=== PATIENT | female | born 1970 | race Caucasian/White ===

== ENCOUNTER 2023-11-03 08:48 | Observation (INO) | payer BC, MEDICAID ==
[~2023-11-03] VITALS: Ht 157.5 cm; Wt 70.0 kg
[~2023-11-03 08:48] MED LIST: MECL-302 PO
[2023-11-03 09:39] LABS: BASOPHILS % (AUTO) 0.4 % (0-1); EOSINOPHILS # (AUTO) 0.3 X10'3 (0-0.9); HEMATOCRIT 47.7 % (35.0-45.0); HEMOGLOBIN 15.9 g/dl (12.0-16.0); LYMPHOCYTES # (AUTO) 1.4 X10'3 (1.1-4.8); LYMPHOCYTES % (AUTO) 15.2 % (21-51); MEAN CORPUSCULAR HEMOGLOBIN 31.5 PG (27.0-31.0); MEAN CORPUSCULAR HGB CONC 33.3 g/dL (33.0-36.5); MEAN CORPUSCULAR VOLUME 94.6 FL (78-98); MEAN PLATELET VOLUME 9.4 FL (7.4-10.4); MONOCYTES # (AUTO) 0.8 X10'3 (0-0.9); MONOCYTES % (AUTO) 8.3 % (2-12); NEUTROPHILS # (AUTO) 6.9 X10'3 (1.8-7.7); NEUTROPHILS % (AUTO) 73.1 % (42-75); PLATELET COUNT 253 X10'3 (140-440); RED BLOOD COUNT 5.05 X10'6 (4.20-5.60); RED CELL DISTRIBUTION WIDTH 13.9 % (11.5-14.5); WHITE BLOOD COUNT 9.5 X10'3 (4.5-11.0)
[2023-11-03 09:47] LABS: ALBUMIN 3.6 G/DL (3.4-5.0); ANION GAP 4 (8-16); BLOOD UREA NITROGEN 12 MG/DL (7-18); BUN/CREATININE RATIO 17.1 (10.0-20.0); CALCIUM 8.8 MG/DL (8.5-10.1); CHLORIDE 106 MMOL/L (99-107); GLUCOSE 87 MG/DL (70-104); LIPASE 40 U/L (16-77); POTASSIUM 3.7 MMOL/L (3.5-5.1); SODIUM 139 MMOL/L (135-145); TOTAL CARBON DIOXIDE 28.7 MMOL/L (24-32); eCRCL 72 ML/MIN; eGFR 87 ML/MIN
[2023-11-03] MEDS ORDERED: nitroGLYCERIN 0.4mg SUBLingual tab SL PRN ×2 (09:55→11:55)
[2023-11-03] MEDS: aspirin 81mg tab.chew PO ONE (10:15)
[2023-11-03] MEDS: nitroGLYCERIN 1gm ointment UD TP ONE (10:15)
[2023-11-03] MEDS: pantoprazole 40 MG vial IV SCH (10:31)
[2023-11-03 11:39] LABS: BILIRUBIN,URINE NEGATIVE (Neg); CLARITY,URINE CLEAR (Clear); COLOR,URINE YELLOW (Yellow); GLUCOSE, URINE NEGATIVE (Neg); KETONES,URINE TRACE mg/dl (Neg); LEUKOCYTE ESTERASE ,URINE NEGATIVE (Neg); NITRITES, URINE NEGATIVE (Neg); OCCULT BLOOD,URINE NEGATIVE (Neg); PROTEIN,URINE NEGATIVE (Neg); UROBILINOGEN,URINE 0.2 E.U/dL (0.2-1.0)
[2023-11-03 11:44] LABS: UA COLLECTION TYPE CLN CATCH MIDSTREAM
[2023-11-03] MEDS ORDERED: potassium Cl 40MEQ/1/2NS 520ml 520 ML IV PRN (11:55)
[2023-11-03] MEDS ORDERED: metoprolol tartrate 1mg/ml inj IV PRN (11:55)
[2023-11-03] MEDS ORDERED: ondansetron/PF 4mg/2ml inj IV PRN (11:55)
[2023-11-03] MEDS ORDERED: potassium Cl 20 mEq SR tablet PO PRN (11:55)
[2023-11-03] MEDS ORDERED: magnesium 4gm in 100ml NS 100 ML IV PRN (11:55)
[2023-11-03] MEDS ORDERED: magnesium 2GM in 50ml NS 50 ML IV PRN (11:55)
[2023-11-03] MEDS: PERFLUTREN PROTEIN-A MICROSPHR (Optison) 0.22 MG/ML 3ML VIAL IV ONE (12:27)
[2023-11-03] MEDS: normal saline 1000ml 1,000 ML IV SCH (12:32)
[2023-11-03] MEDS: acetaminophen 325mg tablet PO PRN (16:04)
[2023-11-03] MEDS ORDERED: SIMV-42 PO (18:50)
[2023-11-03] MEDS ORDERED: DICL75TA28 PO (18:50)
[2023-11-03] MEDS ORDERED: AMLO5TAB16 PO (18:50)
[2023-11-03] MEDS ORDERED: CYCL5TAB PO (18:50)
[2023-11-03] MEDS: K and/or MAG REPLACEMENT MC SCH (20:00)
[2023-11-03 21:10] VITALS: BP 147/73; PULSE 57; RESP 16; TEMP 97.7; O2SAT 96
[2023-11-03 22:00] VITALS: BP 128/67; PULSE 67; RESP 14; TEMP 97.5; O2SAT 97
[2023-11-04] VITALS (14 sets, daily range): BP systolic 121–152; BP diastolic 58–75; PULSE 58–105; RESP 13–18; TEMP 97.7–98; O2SAT 95–100
[2023-11-04] MEDS: morphine 2 MG/ML inj. syringe IV PRN (05:57)
[2023-11-04 07:52] LABS: BASOPHILS % (AUTO) 0.4 % (0-1); EOSINOPHILS # (AUTO) 0.2 X10'3 (0-0.9); HEMATOCRIT 45.5 % (35.0-45.0); HEMOGLOBIN 15.2 g/dl (12.0-16.0); LYMPHOCYTES # (AUTO) 1.1 X10'3 (1.1-4.8); MEAN CORPUSCULAR HEMOGLOBIN 31.7 PG (27.0-31.0); MEAN CORPUSCULAR HGB CONC 33.5 g/dL (33.0-36.5); MEAN CORPUSCULAR VOLUME 94.7 FL (78-98); MEAN PLATELET VOLUME 9.6 FL (7.4-10.4); MONOCYTES # (AUTO) 0.5 X10'3 (0-0.9); MONOCYTES % (AUTO) 6.6 % (2-12); NEUTROPHILS # (AUTO) 5.3 X10'3 (1.8-7.7); PLATELET COUNT 230 X10'3 (140-440); RED CELL DISTRIBUTION WIDTH 13.9 % (11.5-14.5); WHITE BLOOD COUNT 7.1 X10'3 (4.5-11.0)
[2023-11-04] MEDS ORDERED: pantoprazole 40 MG vial IV SCH (08:00)
[2023-11-04 08:22] LABS: ALBUMIN 3.4 G/DL (3.4-5.0); ANION GAP 7 (8-16); BLOOD UREA NITROGEN 9 MG/DL (7-18); CALCIUM 8.2 MG/DL (8.5-10.1); CHLORIDE 106 MMOL/L (99-107); GLUCOSE 82 MG/DL (70-104); POTASSIUM 3.4 MMOL/L (3.5-5.1); SODIUM 140 MMOL/L (135-145); TOTAL CARBON DIOXIDE 27.1 MMOL/L (24-32); eCRCL 84 ML/MIN; eGFR > 90 ML/MIN
[2023-11-04] MEDS: potassium Cl 20 mEq SR tablet PO PRN (08:36)
[2023-11-04] MEDS: pantoprazole 40mg Tablet.DR PO SCH (08:36)
[2023-11-04] MEDS: regadenoson 0.4mg/5ml syringe IV PRN (11:54)
[2023-11-04] MEDS: aminophylline 250mg/10ml inj. IV PRN (12:27)
[2023-11-04 15:05] LABS: LIPASE 30 U/L (16-77)
[2023-11-04] MEDS ORDERED: PANT40SU2 PO (19:07)
== END 2023-11-04 20:18 | disposition home or self-care (01) ==
LOC: ER 08:48 → ED HOLD 11:58 → EDBEDREQ 20:18 → ORTHO 4S 21:10
PROVIDERS: ADMIT Internal Medicine; ATTEND Internal Medicine
DX: I21.A1 Myocardial infarction type 2 (principal); I20.0 Unstable angina; I10 Essential (primary) hypertension; E78.5 Hyperlipidemia, unspecified; K21.9 Gastro-esophageal reflux disease without esophagitis; E78.00 Pure hypercholesterolemia, unspecified; I48.91 Unspecified atrial fibrillation; Z79.899 Other long term (current) drug therapy
CPT/HCPCS: 36415; 71045; 76700; 78452; 80048; 81003; 83690; 83735; 84484; 85025; 87081; 93005; 93017; 93306; 96374; 96375; 99285; A9500; C9113; G0378; J0280; J2270; J2785; J7030

== ENCOUNTER 2024-10-29 12:17 | Inpatient (IN) | payer BC ==
[~2024-10-29] VITALS: Ht 157.5 cm; Wt 63.1 kg
[~2024-10-29 12:17] MED LIST changes: +AMLO5TAB16 PO; +CYCL-920 PO; +DICL75TA28 PO; -MECL-302 PO; +PANT40SU2 PO; +SIMV-42 PO
--- NOTE | 2024-10-29 12:47 | ELECTROCARDIOGRAPH REPORT ---
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
[2024-10-29 12:59] LABS: BASOPHILS # (AUTO) 0.1 X10'3 (0-0.2); BASOPHILS % (AUTO) 0.8 % (0-1); EOSINOPHILS % (AUTO) 0.2 % (0-6); HEMATOCRIT 48.4 % (35.0-45.0); HEMOGLOBIN 16.3 g/dl (12.0-16.0); LYMPHOCYTES % (AUTO) 12.1 % (21-51); MEAN CORPUSCULAR HEMOGLOBIN 30.8 PG (27.0-31.0); MEAN CORPUSCULAR HGB CONC 33.6 g/dL (33.0-36.5); MEAN CORPUSCULAR VOLUME 91.6 FL (78-98); MEAN PLATELET VOLUME 9.3 FL (7.4-10.4); MONOCYTES # (AUTO) 0.4 X10'3 (0-0.9); NEUTROPHILS # (AUTO) 6.9 X10'3 (1.8-7.7); NEUTROPHILS % (AUTO) 81.9 % (42-75); PLATELET COUNT 263 X10'3 (140-440); RED BLOOD COUNT 5.29 X10'6 (4.20-5.60); RED CELL DISTRIBUTION WIDTH 13.7 % (11.5-14.5); WHITE BLOOD COUNT 8.4 X10'3 (4.5-11.0)
[2024-10-29 13:15] LABS: ALANINE AMINOTRANSFERASE 51 U/L (12-78); ALBUMIN 4.3 G/DL (3.4-5.0); ALBUMIN/GLOBULIN RATIO 1.3 (1.1-1.5); ALKALINE PHOSPHATASE 123 IU/L (46-116); ANION GAP 12 (8-16); ASPARTATE AMINO TRANSFERASE 32 U/L (10-37); BILIRUBIN,TOTAL 0.7 MG/DL (0.1-1.0); BLOOD UREA NITROGEN 10 MG/DL (7-18); BUN/CREATININE RATIO 12.8 (10.0-20.0); CALCIUM 9.2 MG/DL (8.5-10.1); CHLORIDE 105 MMOL/L (99-107); CREATININE 0.78 MG/DL (0.40-0.90); GLUCOSE 96 MG/DL (70-104); POTASSIUM 3.5 MMOL/L (3.5-5.1); SODIUM 145 MMOL/L (135-145); TOTAL CARBON DIOXIDE 28.4 MMOL/L (24-32); TOTAL PROTEIN 7.7 G/DL (6.4-8.2); eCRCL 64 ML/MIN; eGFR 76 ML/MIN
[2024-10-29 13:22] LABS: PRO BRAIN NATRIURETIC PEPTIDE 165 PG/ML (0-125)
--- NOTE | 2024-10-29 13:30 | RADIOLOGY REPORT ---
CLINICAL INFORMATION: Chest pain. TECHNIQUE: Single AP portable chest radiograph was obtained. COMPARISON: DI CHEST,SINGLE VIEW on DOS: 11/03/23 FINDINGS: Lungs: Clear. Cardiac: Heart size is within normal limits. Pulmonary vasculature: Unremarkable. Mediastinum/nilam: Unremarkable. Bones: No acute osseous abnormality identified. Other: No other significant findings. IMPRESSION: No evidence of acute disease in the chest.
[2024-10-29] MEDS: ondansetron 4mg rapidly disintigrating tab PO ONE (13:59)
[2024-10-29] MEDS: ondansetron/PF 4mg/2ml inj IV ONE (15:32)
[2024-10-29] MEDS ORDERED: iohexol 350MG/ML 100ml bottle IV ONE (15:38)
--- NOTE | 2024-10-29 16:23 | RADIOLOGY REPORT ---
INDICATION: Chest Pain COMPARISON: None TECHNIQUE: Multidetector CTA of the chest was performed of the chest with 100 cc of intravenous contr ast. PULMONARY ANGIOGRAPHY PROTOCOL was utilized using a bolus-tracking technique centered on the [place] n pulmonary artery. Axial, coronal and sagittal multiplanar and MIP reformats were performed. Sagittal and coronal MIP images are reconstructed and submitted for interpretation. Radiation Dose Information: CT Dose: CTDI volume is 33.27 mGy. Dose-length product is 373.55 mGy*cm Omni 350 : 90 mL The dose indicators for CT are the volume Computed Tomography (CT) Dose Index (CTDIvol) and the Dose Length Product (DLP), and are measured in units of mGy and mGy-cm, respectively. These indicators are not patient dose, but values generated from the CT scanner acquisition factors. The report includes radiation exposure data for exposures received during this examination. Findings: Pulmonary artery: Normal caliber of the pulmonary artery. No large central or large segmental pulmo nary embolism. Lower neck: Normal thyroid. Lungs: No focal consolidation, pulmonary mass, or suspicious pulmonary nodule. Heart/Vascular Structures: Normal heart size. Normal caliber and enhancement of the aorta. Lymph Nodes: No adenopathy Pleura: No pleural effusion or significant pneumothorax. Musculoskeletal: No acute osseous abnormality. Upper abdomen: Limited portions of the upper abdomen are unremarkable. IMPRESSION: 1. No pulmonary embolism. 2. No no findings of pulmonary artery hypertension. HS:Y
--- NOTE | 2024-10-29 16:28 | Physician Documentation ---
History of Present Illness ~ Chief Complaint: Chest Pain Stated Complaint: DIZZY Time Seen by MD: 15:00 Source: patient, EMS, EMS notes reviewed Mode of Arrival: EMS Exam Limitations: no limitations HPI Chief Complaint: Chest pain Caveat: None Independent Historians: History of Present Illness: Patient is a 54-year-old woman brought in by paramedics for substernal chest pain that came on suddenly at 930-10 a.m.. Patient was at rest laying down when this began. Patient had a similar episode five days ago (Thursday). Today the pain was much more severe. She took an aspir in 325 mg with no relief. She had associated nausea and vomiting. Mild shortness of breath. No diaphoresis. Patient denies any abdominal pain. The pain was severe and radiated to the back. And with pain radiating around the lower chest and pain radiating straight to the back described as sharp. Chest pain has since resolved. Patient had a similar episode a year ago last August where she was admitted and told that she had NSTEMI and had a negative stress test and was discharged. Patient has not had a heart catheterization. Patient is followed by Dr. Bunny Ortiz. Review of systems: All systems were reviewed and are negative except for what is indicated in the history of present illness. Past Medical History: Hypertension, hyperlipidemia Past Surgical History: None Social History: , no tobacco use, no alcohol use, no drug use Medications: Reviewed as documented Nursing Notes Allergies: Reviewed as documented in Nursing Notes Medication Reconciliation Allergies: Coded Allergies: acyclovir (Verified Allergy, Intermediate, 11/03/23) Scheduled Amlodipine Besylate (Amlodipine Besylate), 1 TAB PO DAILY, (Reported) Pantoprazole Sodium (Protonix), 1 PKT PO DAILY Simvastatin* (Zocor*), 1 TAB PO HS, (Reported) Scheduled PRN Cyclobenzaprine HCl (Cyclobenzaprine HCl), 1 TAB PO HS PRN for muscle spasms, (Reported) Diclofenac Sodium (Diclofenac Sodium), 1 TAB PO BID PRN for pain, (Reported) Past Medical History Past Medical History: Arrhythmia, High Cholesterol, Hypertension, GERD Past Surgical History: noncontributory Patient History: FH: heart failure Alcohol Use: None Drug Use: none Lives In: Home Physical Exam Vital Signs: Temperature: 97.7, Source: Oral, Heart Rate: 66, Respiratory Rate: 16, BP: 134/70, Pulse Oximetry: 93, Weight: 63.100 Oxygen Flow Rate: 0 Progress Results/Orders Results/Orders Orders - MIKO GALLARDO MD Chest,Single View (10/29/24 12:45) Monitor (10/29/24 12:45) Saline Lock (10/29/24 12:45) Oxygen (10/29/24 12:45) Cta Chest Pe (10/29/24 15:05) Page Hospitalist (10/29/24 16:37) Fill Out Med Reconciliation (10/29/24 16:37) Completed Orders - MIKO GALLARDO MD Chest,Single View (10/29/24 12:45) Cbc/Diff (10/29/24 12:45) PBNP (10/29/24 12:45) Electrocardiogram (10/29/24 12:45) CMP (10/29/24 12:45) Hs Troponin I W Calculations (10/29/24 12:45) Hs Troponin I W Calculations (10/29/24 14:45) Hs Troponin I W Calculations (10/29/24 15:45) Ondansetron Disint. Tablet (Zofran Odt T (10/29/24 13:55) Cta Chest Pe (10/29/24 15:05) Ondansetron Inj. (Zofran 4mg/2ml Vial) (10/29/24 15:10) Iohexol 350mg/Ml 100ml (Omnipaque 350mg/ (10/29/24 15:38) Nitroglycerin Top Ointment (Nitro-Bid Ud (10/29/24 16:45) Medications Received in ER Medications (Trade) Dose Ordered Sig/Elvia Route PRN Reason Start Time Stop Time Status Last Admin Dose Admin (Zofran ODT tablet) 4 mg ONCE ONCE PO 10/29/24 13:55 10/29/24 13:56 DC 10/29/24 13:59 4 MG (Zofran 4mg/2ml vial) 4 mg ONCE ONCE IV 10/29/24 15:10 10/29/24 15:13 DC 10/29/24 15:32 4 MG Vital Signs 10/29/24 10/29/24 10/29/24 12:36 14:53 14:53 Temp 97.7 Pulse 80 66 Resp 18 16 B/P (MAP) 141/84 134/70 (91) Pulse Ox 98 93 O2 Flow Rate 0 Laboratory Tests Test 10/29/24 12:52 10/29/24 14:57 10/29/24 16:06 White Blood Count 8.4 Red Blood Count 5.29 Hemoglobin 16.3 H Hematocrit 48.4 H Mean Corpuscular Volume 91.6 Mean Corpuscular Hemoglobin 30.8 Mean Corpuscular Hemoglobin Concent 33.6 Red Cell Distribution Width 13.7 Platelet Count 263 Mean Platelet Volume 9.3 Neutrophils (%) (Auto) 81.9 H Lymphocytes (%) (Auto) 12.1 L Monocytes (%) (Auto) 5.0 Eosinophils (%) (Auto) 0.2 Basophils (%) (Auto) 0.8 Neutrophils # (Auto) 6.9 Lymphocytes # (Auto) 1.0 L Monocytes # (Auto) 0.4 Eosinophils # (Auto) 0.0 Basophils # (Auto) 0.1 CBC Comment Sodium Level 145 Potassium Level 3.5 Chloride Level 105 Carbon Dioxide Level 28.4 Anion Gap 12 Blood Urea Nitrogen 10 Creatinine 0.78 Estimated GFR/1.73 m2 76 BUN/Creatinine Ratio 12.8 Glucose Level 96 Calcium Level 9.2 Total Bilirubin 0.7 Aspartate Amino Transf (AST/SGOT) 32 Alanine Aminotransferase (ALT/SGPT) 51 Alkaline Phosphatase 123 H Troponin I High Sensitivity 103 *H 97 *H 95 *H Pro-B-Type Natriuretic Peptide 165 H Total Protein 7.7 Albumin 4.3 Globulin 3.4 Albumin/Globulin Ratio 1.3 Chemistry Comments Troponin I High Sens Percent Delta 5 2 Troponin I Hi Sens Absolute Change -6 -2 Medical Decision Making Additional info obtained from: old records Findings Differential diagnosis includes but is not limited to: Acute coronary syndrome, pulmonary embolus, aortic dissection, NSTEMI type 1, NSTEMI type 2 EKG independent interpretation: Performed at 12:39 p.m.. Normal sinus rhythm, heart rate 72, Q-waves in V1 through V3, normal ST segments Chest x-ray, single view, indication: Chest pain Independent interpretation: Lungs are clear, mediastinum normal, normal cardiac silhouette. Normal bones and soft tissues. No acute cardiopulmonary process. Laboratory data independent interpretation: CBC: Unremarkable CMP: Unremarkable 1rst troponin: 103 2nd troponin: 97 3rd troponin: 95 Urinalysis: Emergency department course/medical decision-making: Patient presents with chest pain concerning for acute coronary syndrome. However the patient is also having severe pain radiating to the back that is persisting. CTA of the chest will be performed to rule out aortic dissection. Patient has already taken aspirin prior to arrival. Patient will be given 1 in of nitro paste. CTA of the chest is pending. Patient's troponins are mildly elevated. They seemed to be stable. Given the patient's history would recommend heart catheterization for further evaluation. Patient may have had an NSTEMI and I suspect small-vessel disease. Patient does not have any ischemic changes on EKG. Consultation/communications: 4:40 p.m.: Case discussed with the hospitalist, Dr. Alejandre. We will consult Cardiology. 4:50 p.m.: Case discussed with Dr. Luque, cardiology. He will see the patient in the morning. Departure Time of Disposition: 16:28 Impression: Primary Impression: Chest pain Qualified Codes: R07.9 - Chest pain, unspecified Additional Impression: Elevated troponin Condition: Improved Referrals: NO PRIMARY CARE PROVIDER (PCP) Education Educated: Patient Educated regarding: diagnosis, treatment Signature Scribe Signature: No scribe Attestation: No scribe MIKO GALLARDO MD October 29, 2024 16:28
[2024-10-29] MEDS ORDERED: potassium Cl 40MEQ/1/2NS 520ml 520 ML IV PRN (16:50)
[2024-10-29] MEDS ORDERED: potassium Cl 20 mEq SR tablet PO PRN ×2 (16:50)
[2024-10-29] MEDS ORDERED: mag hydrox/Alum hydrox/simeth 30ml oral suspension PO PRN (16:50)
[2024-10-29] MEDS ORDERED: magnesium sulf-water 4G/100mL 100 ML IV PRN (16:50)
[2024-10-29] MEDS: PERFLUTREN PROTEIN-A MICROSPHR (Optison) 0.22 MG/ML 3ML VIAL IV ONE (16:50)
[2024-10-29] MEDS ORDERED: magnesium hydroxide 30ml (MOM) UD suspension PO PRN (16:50)
[2024-10-29] MEDS ORDERED: magnesium sulf-water 2g/50mL 50 ML IV PRN (16:50)
[2024-10-29] MEDS ORDERED: nitroGLYCERIN 0.4mg SUBLingual tab SL PRN ×2 (16:50→17:25)
[2024-10-29] MEDS ORDERED: metoprolol tartrate 1mg/ml inj IV PRN (17:25)
[2024-10-29] MEDS ORDERED: aminophylline 250mg/10ml inj. IV PRN (17:25)
--- NOTE | 2024-10-29 17:32 | HISTORY AND PHYSICAL ---
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 The patient took a 325 mg aspirin and has developed couple episodes of nausea and vomiting. The patient is currently chest pressure free the patient has had five episodes of chest pressure in the last year however ever this is the most significant episode. The patient was here in October of 2023 and had an echocardiogram that was essentially unremarkable and a negative Lexiscan stress test her EKG was negative for any ST segment elevation or depressions or any significant findings and the patient's high sensitivity troponin is downtrending initially 103 and an 97 currently- Dr. Limon ED physician spoke with on-call string winding machine operator Dr. Luque who will evaluate the patient in the morning and may take the patient for cardiac catheterization however requested a stress test be ordered. Allergies: Coded Allergies: acyclovir (Verified Allergy, Intermediate, 11/03/23) Home Medications Home Medications Active Protonix (Pantoprazole Sodium) 40 Mg Suspdr.pkt 1 Pkt PO DAILY 30 Days Reported Zocor* (Simvastatin) 20 Mg Tablet 1 Tab PO HS Amlodipine Besylate 5 Mg Tablet 1 Tab PO DAILY Cyclobenzaprine HCl 5 Mg Tablet 1 Tab PO HS PRN Diclofenac Sodium 75 Mg Tablet.dr 1 Tab PO BID PRN Past Medical History Past Medical History Hypertension Hyperlipidemia Irregular heart rate Past Surgical History Surgical History Comment Tubal ligation Family History Family History: FH: COPD (chronic obstructive pulmonary disease) FATHER FH: heart failure MOTHER, , Cause: Heart failure, Not a twin, Race: WHITE Past Social History Social History Comment Does not smoke cigarettes, rare alcohol intake, denies any illicit drug use, full code status ROS ROS Except for positives in the HPI the rest of the 14 point review systems is negative Exam Vitals: Vital Signs Date Time Temp Pulse Resp B/P (MAP) Pulse Ox O2 Delivery O2 Flow Rate FiO2 10/29/24 14:53 10/29/24 14:53 66 16 93 0 10/29/24 12:36 97.7 General: Gen. No acute distress alert and oriented 4 Lungs clear to ascultation bilaterally, no wheezes rales or rhonchi appreciated Heart normal sinus rhythm no murmurs rubs or clicks noted Abdomen soft moderate significant epigastric tenderness as well as right periumbilical tenderness Lower extremities no clubbing cyanosis, nor edema appreciated bilaterally Diagnostic Data Last Recorded Lab Results: 10/29/24 1252 10/29/24 1252 Advance Care Planning Advanced Care plannin - 30 Minutes Problems: (1) Chest pain Status: Acute Additional Plan # chest pain evaluate for NM- took 325 mg aspirin at home Metoprolol tartrate 25 mg b.i.d. Atorvastatin 20 mg now and fasting lipid panel is ordered Lexiscan stress test Echocardiogram Dr. Luque string winding machine operator's has been consulted and will evaluate the patient in the morning CTA of the chest is negative for PE # epigastric and right lower quadrant abdominal tenderness A CT scan of the abdomen and pelvis is ordered for further evaluation # hypertension Blood pressure is under acceptable control continue monitor # hyperlipidemia Fasting lipid panel is ordered # DVT prophylaxis SQ Lovenox I spent a total of 17 minutes on reviewing various resuscitative measures/ ACP with the patient at the time of admission. The patient has decided on a full code status Date of Service: October 29, 2024 Billing Provider: CONNIE PHILLIP DO Common Visit Codes: 13608-REMPBEJ INP/OBS CARE (HIGH) Secondary Visit Codes: 25440-CBGQSAYX CARE PLAN 30 MINUTES Problem Qualifiers (1) Chest pain: Chest pain type: unspecified Qualified Codes: R07.9 - Chest pain, unspecified CONNIE PHILLIP DO October 29, 2024 17:32
[2024-10-29] MEDS: pantoprazole 40mg Tablet.DR PO ONE (18:34)
[2024-10-29] MEDS: atorvastatin 20mg tablet PO ONE (18:34)
[2024-10-29] MEDS: metoprolol tartrate 50mg tablet PO SCH (18:34)
[2024-10-29] MEDS: mag hydrox/Alum hydrox/simeth 30ml oral suspension PO ONE (18:36)
[2024-10-29] MEDS: nitroGLYCERIN 1gm ointment UD TP ONE (18:36)
[2024-10-29] MEDS: normal saline 1000ml 1,000 ML IV SCH (18:45)
[2024-10-29] MEDS: ondansetron/PF 4mg/2ml inj IV PRN (19:41)
--- NOTE | 2024-10-29 20:00 | RADIOLOGY REPORT ---
Exam: CT CT ABDOMEN PELVIS History: Epigastric and right lower quadrant abdominal pain Comparison Study: None Technique: Multidetector spiral CT of the abdomen was performed from lung bases to pubic symphysis. Imaging was performed without IV contrast. Axial, coronal and sagittal multiplanar reformats were ob tained from the axial data set by the technologist. Radiation Dose : 1. Abdomen/Pelvis: CTDIvol mGy, DLP mGy*cm. Findings: Evaluation of solid organs is limited due to lack of intravenous contrast use. Lung bases: No abnormality demonstrated. Liver: Liver is normal in size. No focal lesions noted. Gallbladder and Biliary Tree: No abnormality demonstrated. Spleen: No abnormality demonstrated. Pancreas: No abnormality demonstrated. Adrenal Glands: No abnormality demonstrated. Kidneys: There is contrast in the renal collecting system related to recent contrast administration. No abnormality demonstrated. No hydroureteronephrosis. Bladder: Non distended. Bowel: Small hiatal hernia present. Stomach appears grossly unremarkable. No abnormally dilated or th ick-walled loops of large or small bowel noted. Appendix appears unremarkable. Ascites: Absent Lymphadenopathy: No evidence of lymphadenopathy. Abdominal Wall and Mesentery: Unremarkable. Vasculature: Unremarkable given lack of intravenous contrast. Pelvic Organs: Unremarkable Musculoskeletal: No bony lesions or fracture. IMPRESSION: No acute abdominal or pelvic findings. Radiation optimization: All CT scans at this facility use at least one of these dose optimization alisa hniques: automated exposure control mA and/or kV adjustment per patient size (includes targeted exam s where dose is matched to clinical indication) or iterative reconstruction.
[2024-10-29] MEDS: docusate sod 100mg capsule PO SCH (20:13)
[2024-10-29] MEDS: enoxaparin 40mg/0.4ml syringe SQ SCH (20:14)
[2024-10-29 20:40] VITALS: BP 100/62; PULSE 71; RESP 20; TEMP 98.1; O2SAT 97
[2024-10-29] MEDS: K and/or MAG REPLACEMENT MC SCH (20:40)
[2024-10-29] MEDS: acetaminophen 325mg tablet PO PRN (21:19)
[2024-10-30] VITALS (11 sets, daily range): BP systolic 109–165; BP diastolic 59–96; PULSE 76–111; RESP 16–20; TEMP 98.2–98.7; O2SAT 97–100
[2024-10-30 05:57] LABS: BASOPHILS % (AUTO) 0.3 % (0-1); EOSINOPHILS % (AUTO) 0.2 % (0-6); HEMATOCRIT 40.2 % (35.0-45.0); HEMOGLOBIN 13.5 g/dl (12.0-16.0); LYMPHOCYTES % (AUTO) 13.5 % (21-51); MEAN CORPUSCULAR HGB CONC 33.7 g/dL (33.0-36.5); MEAN CORPUSCULAR VOLUME 91.9 FL (78-98); MEAN PLATELET VOLUME 9.6 FL (7.4-10.4); MONOCYTES # (AUTO) 0.6 X10'3 (0-0.9); MONOCYTES % (AUTO) 7.6 % (2-12); NEUTROPHILS % (AUTO) 78.4 % (42-75); PLATELET COUNT 226 X10'3 (140-440); RED BLOOD COUNT 4.37 X10'6 (4.20-5.60); WHITE BLOOD COUNT 7.6 X10'3 (4.5-11.0)
[2024-10-30 06:16] LABS: ALANINE AMINOTRANSFERASE 32 U/L (12-78); ALBUMIN 3.3 G/DL (3.4-5.0); ALBUMIN/GLOBULIN RATIO 1.3 (1.1-1.5); ALKALINE PHOSPHATASE 88 IU/L (46-116); ANION GAP 12 (8-16); ASPARTATE AMINO TRANSFERASE 19 U/L (10-37); BILIRUBIN,TOTAL 0.6 MG/DL (0.1-1.0); BLOOD UREA NITROGEN 10 MG/DL (7-18); BUN/CREATININE RATIO 13.7 (10.0-20.0); CALCIUM 8.2 MG/DL (8.5-10.1); CHLORIDE 111 MMOL/L (99-107); CHOLESTEROL 177 MG/DL (0-200); CREATININE 0.73 MG/DL (0.40-0.90); GLUCOSE 78 MG/DL (70-104); HDL CHOLESTEROL 59 MG/DL (35-60); LDL CHOLESTEROL 99 MG/DL (50-100); POTASSIUM 3.6 MMOL/L (3.5-5.1); SODIUM 150 MMOL/L (135-145); TOTAL CARBON DIOXIDE 27.5 MMOL/L (24-32); TOTAL PROTEIN 5.9 G/DL (6.4-8.2); TRIGLYCERIDES 78 MG/DL (20-135); eCRCL 68 ML/MIN; eGFR 82 ML/MIN
[2024-10-30] MEDS: pantoprazole 40mg Tablet.DR PO SCH (07:53)
[2024-10-30] MEDS: atorvastatin 20mg tablet PO SCH (07:53)
[2024-10-30] MEDS: regadenoson 0.4mg/5ml syringe IV PRN (08:57)
[2024-10-30] MEDS: aminophylline 500mg/20ml vial IV PRN (09:40)
--- NOTE | 2024-10-30 10:28 | RADIOLOGY REPORT ---
CLINICAL INFORMATION: Myocardial infarction. TECHNIQUE: 8.7 mCi of technetium 99m sestamibi was infused at rest. Rest SPECT imaging was obtained. Routine protocol for Lexiscan stress study was performed with 0.4 mg of Lexiscan. 33.3 mCi of techne tium 99m sestamibi was infused. Stress SPECT imaging was obtained. 75 mg aminophylline was also admin istered due to nausea and vomiting after the infusion. COMPARISON: NM NM KEVEN SCAN on DOS: 11/04/23 FINDINGS: Resting heart rate of 73 BPM increased to maximum rate of 136 BPM. Resting blood pressure o f 139/59 increased to 165/96. There were no significant EKG changes. There was no chest pain. There is no evidence of stress induced ischemia or stress dilatation of the left ventricle. TID ratio is 0.97. Wall motion imaging appears normal. Calculated left ventricular ejection fraction is 77 %. IMPRESSION: 1. No evidence of stress-induced ischemia. 2. Left ventricular ejection fraction is 77%.
--- NOTE | 2024-10-30 10:59 | CONSULTATION REPORT ---
History of Present Illness Providers to CC CC: ABEBA ELLER MD; MERCED AZEVEDO MD ~ Reason for Admit\Admit Dx: Chest pain eval for HI History of Present Illness The patient is a 54-year-old female who follows with Dr. Mckeon. She has a known history of hypertension and hyperlipidemia. She was in her usual state of health until an episode of substernal chest pain that occurred Thursday night while she was asleep. She had a similar episode on Thursday night and therefore presented to the emergency room for further evaluation/assessment. This was associated with noted nausea. She mentions that she did have [place] food the night prior to presentation. Both episodes of pain were nonexertional. She denies any excess stress. She was found to have minimally elevated troponins that were downtrending. ECG was unremarkable. CTA of the chest as well as CT of the abdomen/pelvis were both unremarkable. The patient was subsequently admitted by the hospitalist service and she underwent a Lexiscan stress test this morning that was noted to be negative for any reversible ischemia. Currently, the patient is chest pain-free. She denies any current symptoms and states she feels back to her normal self. Allergies: Coded Allergies: acyclovir (Verified Allergy, Intermediate, 11/03/23) Home Medications Home Medications Active Protonix (Pantoprazole Sodium) 40 Mg Suspdr.pkt 1 Pkt PO DAILY 30 Days Reported Zocor* (Simvastatin) 20 Mg Tablet 1 Tab PO HS Amlodipine Besylate 5 Mg Tablet 1 Tab PO DAILY Cyclobenzaprine HCl 5 Mg Tablet 1 Tab PO HS PRN Diclofenac Sodium 75 Mg Tablet. 1 Tab PO BID PRN Past Medical History Medical History Comment 1. Hypertension 2. Hyperlipidemia Past Surgical History Surgical History Comment 1. Tubal Ligation Past Family History Family History: FH: COPD (chronic obstructive pulmonary disease) FATHER FH: heart failure MOTHER, , Cause: Heart failure, Not a twin, Race: WHITE Past Social History Social History Comment The patient denies any tobacco or illicit drug use. Mentions very rare/social alcohol use. Physical Exam Last Vital Signs Recorded: Temperature: 98.7, Source: Oral, Heart Rate: 111, Respiratory Rate: 16, BP: 136/78, Pulse Oximetry: 100, Weight: 63.100 General Appearance: alert, no apparent distress EENT: moist mucous membranes Neck: normal inspection Respiratory: lungs clear, normal breath sounds Cardiovascular: regular rate, rhythm, no edema, no murmur Gastrointestinal: bowels sounds present, tenderness Rectal: deferred Extremities: no edema Neurologic: oriented x4 Review of Systems ROS ROS Comments: A full 12 point review of systems was performed and was negative unless otherwise mentioned in HPI Results Diagram Lab Result Diagram: 10/30/24 0500 10/30/24 0500 Lab Results Trop HS: 103 ---> 97 --> 95 Other Procedure Comments: ECG: NSR CTA Chest (10/29/24): IMPRESSION: 1. No pulmonary embolism. 2. No no findings of pulmonary artery hypertension. Lexiscan Stress (10/30/24): IMPRESSION: 1. No evidence of stress-induced ischemia. 2. Left ventricular ejection fraction is 77%. CT Abd/Pelvis (10/29/24): IMPRESSION: No acute abdominal or pelvic findings. Assessment/Plan Additional Plan The patient is a 54-year-old female with a history of hypertension and hyperlipidemia who presented with chest pain. She underwent workup with a Lexiscan stress test that was negative for any underlying reversible ischemia. 1. Chest pain -the patient had minimally elevated troponins that were downtrending. Her Lexiscan stress test this morning was negative for any reversible ischemia. -at this point, the question is could the patient have underlying microvascular angina. Thus would advise the following as listed: -Amlodipine 5 mg QHS -Metoprolol Tartrate 25 mg BID -ASA 81 mg QHS -Atorvastatin 20 mg QHS -would advise the patient to follow up with her primary composition mixer as an outpatient to discuss further options and investigations. -the patient was advised that if she has a recurrence of her symptoms to come back to the emergency room for further evaluation/assessment. -patient was agreeable with the aforementioned plan. 2. Hypertension -continue with amlodipine -add a low-dose beta jing as mentioned above 3. Hyperlipidemia -continue with the statin Patient care was discussed in great detail with the patient. All of her questions were answered. She is agreeable with the aforementioned plan and states she will follow up with her composition mixer as an outpatient. Thank you for allowing me to participate in the care of your patient. Please feel free to call with any questions/concerns that you may have. MERCED AZEVEDO MD October 30, 2024 10:59
[2024-10-30] MEDS ORDERED: cyclobenzaprine 10mg tablet PO PRN (13:25)
[2024-10-30] MEDS ORDERED: DICLOFENAC SODIUM 75 MG PO PRN (13:25)
[2024-10-30] MEDS: proCHLORperazine 10mg tablet PO ONE (14:37)
[2024-10-30] MEDS ORDERED: PROC10TA97 PO (16:04)
[2024-10-30] MEDS ORDERED: ATOR20TA66 PO (16:04)
[2024-10-30] MEDS ORDERED: ASPI-1265 PO (16:04)
[2024-10-30] MEDS ORDERED: METO25TA6 PO (16:04)
--- NOTE | 2024-10-30 17:02 | CARDIOLOGY REPORT ---
APPROVED REPORT EXAM: Comprehensive 2D, Doppler, and color-flow Echocardiogram. Patient Location: [facility] Blood Pressure: 131/73 mmHg Heart Rate: 75 bpm Rhythm: Sinus Rhythm Indications Angina/Chest Pain Elevated Troponins (103, 97, 93) Dizziness Hx of Hypertension Arrhythmia Geotechnical Field Technician: MD Jakob Previous echo: 11/03/2023 PSYCHIATRIC EF:65-70% 2D Dimensions RVDd 2.9 cm LA Diam3.7 cm IVSd 1.0 (0.7-1.1cm) LVDd 4.2 cm PWd 0.9 (0.7-1.1cm) IVSs 1.0 (0.8-1.2cm) LVDs 2.7 (2.5-4.0cm) PWs 0.9 (0.8-1.2cm) LVOT Diameter 2.04 (1.8-2.4cm) LVEF(%) 67.2 (>50%) FS (%) 37.0 % SV 54.3 ml CO 4.2 L/min M-Mode Dimensions RVDd 3.08 (2.1-3.2cm) Left Atrium(MM) 3.26 (2.5-4.0cm) Aortic Root 2.82 (2.2-3.7cm) Aortic Cusp Exc 1.65 (1.5-2.0cm) MV EPSS 0.5 (<0.5cm) Aortic Valve AoV Peak Bowen. 152.3 cm/s AoV VTI 28.1 cm AO Peak GR. 9.3 mmHg AO Mean GR. 5 mmHg LVOT VTI 22.57 cm LVOT Peak Bowen. 104.7 cm/s HUGH(VTI)/BSA 2.64 cm2/m2 HUGH (VTI) 2.64 cm2 Mitral Valve MV E Velocity 59.3 cm/s MV Peak Gr. 3 mmHg MV DECEL TIME 164 ms MV A Velocity 81.4 cm/s MV Mean Gr. 1 mmHg MV PHT 68 ms E/A Ratio 0.7 MVA (PHT) 3.24 cm2 MV VMax79.3 cm/sMV VMean51.1 cm/s MVA VTI3.39 cm2MV VTI21.9 cm TDI Lateral E' P. V12.25 cm/s E/Lateral E' 4.8 Tricuspid Valve TR P. Velocity 250 cm/s RAP ESTIMATE 10 mmHg TR Peak Gr. 25 mmHg RVSP 35 mmHg Pulmonary Vein S1 Velocity 65.9 cm/s D2 Velocity 43.0 cm/s PVa Ewlnqhbg53.6 cm/s PVa [id number] msec LEFT VENTRICLE Normal LV size and wall thickness. Overall systolic function is normal. Overall LVEF is 65-70%. RIGHT VENTRICLE RV is normal size and function. Estimated PA systolic pressure is 35 mmHg. ATRIA The left atrium size is normal. The right atrium size is normal. AORTIC VALVE Trileaflet AV appears sclerotic without stenosis or insufficiency. MITRAL VALVE Mild MV annular calcification without stenosis. Trace regurgitation. TRICUSPID VALVE TV appears structurally normal with trace regurgitation. PULMONIC VALVE Normal PV without stenosis, physiologic insufficiency. GREAT VESSELS The aortic root is normal in size. IVC is normal in size and collapses greater than 50% with inspirat ion. PERICARDIUM Mild/small anterior loculated pericardial effusion near RA. No evidence of hemodynamic compromise. Other Information Study Quality: Adequate Conclusion Normal LV size and wall thickness. Overall systolic function is normal. Overall LVEF is 65-70%. RV is normal size and function. Estimated PA systolic pressure is 35 mmHg. The left atrium size is normal. The right atrium size is normal. Trileaflet AV appears sclerotic without stenosis or insufficiency. Mild MV annular calcification without stenosis. Trace regurgitation. TV appears structurally normal with trace regurgitation. Mild/small anterior loculated pericardial effusion near RA. No evidence of hemodynamic compromise.
--- NOTE | 2024-10-30 18:05 | DISCHARGE SUMMARY ---
Discharge Summary Providers to CC ~ Discharge Summary Admission Diagnosis: [place] [facility] Course DATE OF ADMISSION: 10/29/2024 DATE OF DISCHARGE: 10/30/2024 Discharge Diagnosis\Comment: Type 2 mi- NSTEMI ruled out, hypertension, hyperlipidemia, gastritis Operations\Procedures: None Consultants: Dr. Yaw Luque cellular equipment repairer Complications: None Condition on DC: Stable New Medications: Aspirin (Aspirin) 81 Mg Tab.chew 1 TAB PO DAILY, #30 TAB.CHEW Prochlorperazine Maleate (Prochlorperazine Maleate) 10 Mg Tablet 1 TAB PO Q6H PRN for nausea/vomiting, #20 TAB 0 Refills Atorvastatin Calcium (Atorvastatin Calcium) 20 Mg Tablet 20 MG PO DAILY, #30 TAB Metoprolol Tartrate (Metoprolol Tartrate) 25 Mg Tablet 1 TAB PO Q12H for 30 Days, #60 TAB 0 Refills Continued Medications: Amlodipine Besylate (Amlodipine Besylate) 5 Mg Tablet 1 TAB PO DAILY Cyclobenzaprine HCl (Cyclobenzaprine HCl) 5 Mg Tablet 1 TAB PO HS PRN for muscle spasms Diclofenac Sodium (Diclofenac Sodium) 75 Mg Tablet.dr 1 TAB PO BID PRN for pain Pantoprazole Sodium (Protonix) 40 Mg Suspdr.pkt 1 PKT PO DAILY for 30 Days, #30 PKT 0 Refills Discontinued Medications: Simvastatin* (Zocor*) 20 Mg Tablet 1 TAB PO HS Discharge Summary: I admitted the patient with the following HPI: This is a 54-year-old female who has a patient's Dr. Mckeon cellular equipment repairer's who presents significant substernal chest pressure that is started at a proximally 09:30 this morning- the patient states that the pressure lasted a proximally 1 hour and radiated to her back and underneath her shoulders bilaterally she was short of breath with the chest pain and became significantly sweaty however was not cold and clammy. The patient took a 325 mg aspirin and has developed couple episodes of nausea and vomiting. The patient is currently chest pressure free the patient has had five episodes of chest pressure in the last year however ever this is the most significant episode. The patient was here in October of 2023 and had an echocardiogram that was essentially unremarkable and a negative Lexiscan stress test her EKG was negative for any ST segment elevation or depressions or any significant findings and the patient's high sensitivity troponin is downtrending initially 103 and an 97 currently- Dr. Limon ED physician spoke with on-call cellular equipment repairer Dr. Luque who will evaluate the patient in the morning and may take the patient for cardiac catheterization however requested a stress test be ordered. The patient had a Lexiscan stress test which was negative for any reversible ischemia the patient was evaluated by Dr. Yaw Luque who recommended outpatient follow up with the patient is cellular equipment repairer's Dr. Mckeon. And to start metoprolol tartrate 25 mg b.i.d. 81 mg aspirin daily and atorvastatin 20 mg daily the patient is at home on simvastatin which I switched to atorvastatin. The patient has a fasting lipid panel with a triglyceride level of 78 and a total cholesterol of 177 LDL of 99 and HDL of 59. The patient did have some nausea as well which Zofran did not help I did give the patient a 10 mg dose of Compazine was resolved the patient has nausea the patient did have epigastric tenderness on exam as well however denies any heartburn- the patient was discharged with a prescription for Compazine. An non contrast Abdominal and Pelvic ct was unremarkable. Gen. No acute distress alert and oriented 4 Lungs clear to ascultation bilaterally, no wheezes rales or rhonchi appreciated Heart normal sinus rhythm no murmurs rubs or clicks noted Abdomen soft moderate to significant epigastric tenderness bowel sounds are normoactive Lower extremities no clubbing cyanosis, nor edema appreciated bilaterally. The patient felt ready to be discharged and was medically cleared to be discharged on 10/30/2024 The patient was seen and evaluated on day of discharge. Time spent on discharge 35 minutes *Problems/Diagnosis: (1) Chest pain Status: Acute Total Time Spent on D/C: > 30 Minutes Date of Service: October 30, 2024 Billing Provider: CONNIE PHILLIP DO Common Visit Codes: 96533-ONU/OBS DISCH DAY >30min Problem Qualifiers (1) Chest pain: Qualified Codes: R07.9 - Chest pain, unspecified CONNIE PHILLIP DO October 30, 2024 18:05
[2024-10-31] MEDS ORDERED: PANTOPRAZOLE SODIUM PO SCH (08:00)
[2024-10-31] MEDS ORDERED: amLODIPine 5mg tablet PO SCH (08:00)
== END 2024-10-30 16:24 | disposition home or self-care (01) | DRG 391 ==
LOC: ER 12:18 → ED HOLD 16:53 → UNDOADMIN 16:55 → ED HOLD 16:55 → ORTHO 4S 20:39 → ED HOLD 20:39 → UNDODISIN 10-30 16:24
PROVIDERS: ADMIT Family Medicine; ATTEND Family Medicine
PROC: B32T1ZZ Computerized Tomography (CT Scan) of Left Pulmonary Artery using Low Osmolar Contrast (ICD-10-PCS; principal; 2024-10-29)
PROC: B32S1ZZ Computerized Tomography (CT Scan) of Right Pulmonary Artery using Low Osmolar Contrast (ICD-10-PCS; 2024-10-29)
PROC: 4A02XM4 Measurement of Cardiac Total Activity, External Approach (ICD-10-PCS; 2024-10-30)
PROC: 3E073KZ Introduction of Other Diagnostic Substance into Coronary Artery, Percutaneous Approach (ICD-10-PCS; 2024-10-30)
DX: K29.70 Gastritis, unspecified, without bleeding (principal); I21.A1 Myocardial infarction type 2; E78.00 Pure hypercholesterolemia, unspecified; I50.9 Heart failure, unspecified; I11.0 Hypertensive heart disease with heart failure; K21.9 Gastro-esophageal reflux disease without esophagitis; Z79.82 Long term (current) use of aspirin; Z79.899 Other long term (current) drug therapy; Z82.49 Family history of ischemic heart disease and other diseases of the circulatory system; Z82.5 Family history of asthma and other chronic lower respiratory diseases
CPT/HCPCS: 36415; 71045; 71275; 74176; 78452; 80053; 80061; 83735; 83880; 84484; 85025; 87081; 93005; 93017; 93306; 96374; 99285; A9500; G0378; J0280; J1650; J2405; J2785; J7030; Q0164; Q9967